=== PATIENT | female | born 1970 | race Caucasian/White ===

== ENCOUNTER 2018-03-15 07:28 | Emergency (ER) | payer MEDICAID ==
[~2018-03-15] VITALS: Ht 152.4 cm; Wt 91.2 kg
[~2018-03-15 07:28] MED LIST: LISI10TA11 PO; ORE25 PO
[2018-03-15 07:36] VITALS: BP 199/127
--- NOTE | 2018-03-15 07:43 | NUR ---
PT AMBULATES TO BED 7
--- NOTE | 2018-03-15 07:44 | NUR ---
DR LOAIZA EVALUATING AT BEDSIDE
--- NOTE | 2018-03-15 07:45 | NUR ---
48 YO F BIB SELF W/ C/O HIGH BLOOD PRESSURE, BURNING URINATION, HEADACHE, DIZZINESS, NAUSEA WITH VOMITING LAST NIGHT; RUN OUT OF AMLOPIDINE X 2 MONTHS. PT REPORTS THAT SHE BELIEVES HER HEADACHE/DIZZINESS IS R/T TO HER HIGH BP THIS IS HER USUAL. SHE HAS BEEN UNDER A LOT OF STRESS LATELY. PT AAOX4, GCS 15, CMS INTATC, RR EVEN AND UNLABORED, LUNGS BL CLEAR ABD SOFT, NON-TENDER. AMBULATORY W/ DAY GAIT. NO EDEMA NOTED. ER MD NOTIFIED OF PT STATUS. PT NEES MET. SAFETY PRECAUTIONS IN PLACE. WILL CONTINUE TO CLOSELY MONITOR.
[2018-03-15] MEDS ORDERED: NITROGLYCERIN 2% 1 GM PKT TP ONE (07:50)
[2018-03-15] MEDS ORDERED: LORazepam 2 MG/ML VIAL IVP ONE (07:50)
[2018-03-15] MEDS ORDERED: ENALAPRILAT 2.5 MG/2 ML VIAL IVP ONE (07:50)
[2018-03-15] MEDS ORDERED: FUROSEMIDE 40 MG/4 ML VIAL IVP ONE (07:50)
[2018-03-15] MEDS ORDERED: METOPROLOL 25 MG TAB PO ONE (07:50)
--- NOTE | 2018-03-15 08:09 | NUR ---
XRAY AT BEDSIDE
--- NOTE | 2018-03-15 09:12 | NUR ---
PT RESTING COMFORTABLY IN [facility] AT THIS TIME W/ VSS, BP HAS REDUCED TO 172/84. HR 76 R18. DENIES PAIN AT THIS TIME. SAFETY PRECAUTIONS IN PLACE. WILL CONTINUE TO CLOSELY MONITOR.
[2018-03-15 09:45] LABS: BASOPHILS % (AUTO) 0.8 % (0.0-2.0); EOSINOPHILS # (AUTO) 0.2 K/uL (0-0.4); EOSINOPHILS % (AUTO) 3.5 % (0.0-4.0); HEMATOCRIT 41.8 % (36-48); HEMOGLOBIN 14.3 g/dL (12.0-16.0); LYMPHOCYTES # (AUTO) 1.9 K/uL (2.5-16.5); LYMPHOCYTES % (AUTO) 30.9 % (20.5-51.1); MEAN CORPUSCULAR HEMOGLOBIN 30 pg (27-31); MEAN CORPUSCULAR HGB CONC 34 g/dL (33-37); MEAN CORPUSCULAR VOLUME 88.3 fL (80-94); MONOCYTES # (AUTO) 0.4 K/uL (0.8-1.0); MONOCYTES % (AUTO) 7.1 % (1.7-9.3); NEUTROPHILS # (AUTO) 3.6 K/uL (1.8-7.7); NEUTROPHILS % (AUTO) 57.7 % (42.2-75.2); PLATELET COUNT (AUTO) 265 K/uL (140-450); RED BLOOD CELL COUNT(AUTO) 4.73 MIL/uL (4.20-5.40); RED CELL DISTRIBUTION WIDTH 13.4 % (11.6-13.7); WHITE BLOOD COUNT (AUTO) 6.2 K/uL (4.8-10.8)
[2018-03-15 09:53] LABS: ANION GAP 12.2 (8-16); CARBON DIOXIDE 26.3 mmol/L (21-32); CREATININE 0.6 mg/dL (0.6-1.3); POTASSIUM 3.5 mmol/L (3.5-5.1)
[2018-03-15 09:59] LABS: ALBUMIN 3.9 g/dL (3.4-5.0); TOTAL BILIRUBIN 0.5 mg/dL (0.0-1.0)
[2018-03-15 10:02] LABS: PROTHROMBIN TIME 8.7 secs (10.8-13.4)
--- NOTE | 2018-03-15 10:20 | NUR ---
PT AMBULATES W/ STEADY GAIT TO RESTROOM AT THIS TIME W/O INCIDENT
[2018-03-15 11:14] VITALS: BP 154/85
--- NOTE | 2018-03-15 11:14 | NUR ---
Patient discharged with v/s stable. Written and verbal after care instructions given and explained. Patient alert, oriented and verbalized understanding of instructions. Ambulatory with steady gait. All questions addressed prior to discharge. ID band removed. Patient advised to follow up with PMD. Rx of Lisinopril/Hydrochlorothiazide given. Patient educated on indication of medication including possible reaction and side effects. Opportunity to ask questions provided and answered.
== END 2018-03-15 11:14 | disposition home or self-care (01) ==
LOC: MED 07:28
DX: I10 Essential (primary) hypertension (principal); Z91.14 Patient's other noncompliance with medication regimen; Z88.6 Allergy status to analgesic agent; Z79.899 Other long term (current) drug therapy
CPT/HCPCS: 36415; 71045; 80053; 83880; 84484; 85025; 85610; 85730; 93005; 96374; 96375; 99285; J1940; J2060; J3490

== ENCOUNTER 2018-12-17 01:28 | Emergency (ER) | payer SELFPAY ==
[~2018-12-17] VITALS: Ht 152.4 cm; Wt 90.7 kg
[2018-12-17 01:37] VITALS: BP 212/102
[2018-12-17] MEDS ORDERED: IBUPROFEN 600 MG TAB PO ONE (01:45)
[2018-12-17] MEDS ORDERED: cloNIDine 0.1 MG TAB PO ONE (01:45)
--- NOTE | 2018-12-17 01:55 | NUR ---
48/F PRESENTS TO ED, C/O HEADACHE SINCE YESTERDAY. PT BP 212/102, HR 80, AT THIS TIME. PT DENIES CP, SOB, N/V. AOX4, GCS 15, PERRLA 3MM, SKIN NORMAL WARM AND DRY, RR EVEN AND UNLABORED. LUNG SOUNDS CLEAR BL. HR EVEN AND REGULAR. HX HTN RX NONCOMPLIANT OTC ASPIRIN WITHOUT RELIEF
--- NOTE | 2018-12-17 02:21 | NUR ---
PT REPORTS THAT HEADACHE IS STARTING TO GO AWAY. BP 180/95, HR 68.
[2018-12-17] MEDS ORDERED: MORPHINE SULFATE 4 MG/ML SYR IVP ONE (02:35)
[2018-12-17] MEDS ORDERED: hydrALAZINE 20 MG/ML VIAL IVP ONE (02:35)
[2018-12-17 02:47] LABS: BASOPHILS % (AUTO) 0.4 % (0.0-2.0); EOSINOPHILS # (AUTO) 0.1 K/uL (0-0.4); EOSINOPHILS % (AUTO) 1.3 % (0.0-4.0); LYMPHOCYTES # (AUTO) 2.8 K/uL (2.5-16.5); LYMPHOCYTES % (AUTO) 29.4 % (20.5-51.1); MEAN CORPUSCULAR HEMOGLOBIN 31 pg (27-31); MEAN CORPUSCULAR HGB CONC 34 g/dL (33-37); MEAN CORPUSCULAR VOLUME 91.4 fL (80-94); MONOCYTES # (AUTO) 0.8 K/uL (0.8-1.0); MONOCYTES % (AUTO) 8.3 % (1.7-9.3); NEUTROPHILS # (AUTO) 5.8 K/uL (1.8-7.7); NEUTROPHILS % (AUTO) 60.6 % (42.2-75.2); PLATELET COUNT (AUTO) 265 K/uL (140-450); RED BLOOD CELL COUNT(AUTO) 4.49 MIL/uL (4.20-5.40); WHITE BLOOD COUNT (AUTO) 9.6 K/uL (4.8-10.8)
[2018-12-17 02:58] LABS: ANION GAP 11.8 (8-16); CARBON DIOXIDE 27.2 mmol/L (21-32)
[2018-12-17 03:04] LABS: ALBUMIN 3.6 g/dL (3.4-5.0); TOTAL BILIRUBIN 0.4 mg/dL (0.0-1.0)
[2018-12-17] MEDS ORDERED: POTASSIUM CHLORIDE 10 MEQ TABER PO ONE (03:05)
[2018-12-17] MEDS ORDERED: NACL 0.9% 1,000 ML IV ONE (03:10)
--- NOTE | 2018-12-17 04:01 | NUR ---
PT REPORTS RELIEF OF HEADACHE. VS NOTED. PT ALSO C/O SUDDEN ONSET EPIGASTRIC PAIN, REPORTS SIMILAR SYMPTOMS YEARS AGO WITH GALLSTONES. PT REFUSES PAIN MEDS AT THIS TIME. DR CHARLES MADE AWARE. PT ADVISED TO FOLLOW UP WITH PCP.
[2018-12-17 04:10] VITALS: BP 131/66
--- NOTE | 2018-12-17 04:11 | NUR ---
Patient discharged with v/s stable. Written and verbal after care instructions given and explained. Patient alert, oriented and verbalized understanding of instructions. Ambulatory with steady gait. All questions addressed prior to discharge. ID band removed. Patient advised to follow up with PMD. Rx of LISINOPRIL, HCTZ given. Patient educated on indication of medication including possible reaction and side effects. Opportunity to ask questions provided and answered.
== END 2018-12-17 04:10 | disposition home or self-care (01) ==
LOC: MED 01:28
DX: R51 Headache (principal); I10 Essential (primary) hypertension; E87.6 Hypokalemia; Z76.0 Encounter for issue of repeat prescription; Z88.5 Allergy status to narcotic agent; Z79.899 Other long term (current) drug therapy
CPT/HCPCS: 36415; 80053; 85025; 93005; 96374; 96375; 99284; J0360; J2270; J7030